=== PATIENT | male | born 1945 | race Caucasian/White ===

== ENCOUNTER 2021-01-31 14:00 | Inpatient (IN) ==
[2021-01-31] MEDS ORDERED: GLUCAGON 1 MG VIAL IM PRN (16:55)
[2021-01-31 16:56] LABS: Basophils # 0.1 10*3/uL (0.0-0.2); Basophils % 0.5 % (0.0-0.8); Eosinophils # 0.1 10*3/uL (0.0-0.87); Eosinophils % 0.7 % (0.00-10.9); Hematocrit 36.7 VOL% (42.0-52.0); Hemoglobin 12.8 GM/DL (14.0-18.0); Immature Granulocytes Absolute 0.14 #; Lymphocytes % 7.6 % (21.2-54.2); Mean Corpuscular HGB Conc 34.9 GM/DL (32-36); Mean Corpuscular Volume 93.1 FL (87-102); Monocytes % 10.6 % (1.7-12.7); Neutrophils % 79.6 % (38.7-73.9); Platelet Count 241 T/CUMM (130-400); Red Blood Count 3.94 MC/CUMM (3.8-5.5); Red Cell Distribution Width 20.5 % (9.3-17.3); White Blood Count 13.7 T/CUMM (4-12)
[2021-01-31 17:05] LABS: INR 1.6; PT Patient Result 16.7 SECS (9.8-11.9)
[2021-01-31 17:20] LABS: Albumin 2.2 G/DL (3.4-5.0); Bilirubin,Total 8.9 MG/DL (0.2-1.0); Calcium 8.5 MG/DL (8.5-10.1); Osmolality,Calculated 307.3 MOS/KG (273-304); Potassium 4.4 MMOL/L (3.5-5.1); Total Protein 6.3 G/DL (5.0-7.5)
[2021-01-31] MEDS: PIPERACILLIN/TAZOBACTAM 3,375 MG in SODIUM CHLORIDE 0.9% 100 ML IV SCH (18:37)
[2021-02-01 01:20] LABS: Basophils # 0.1 10*3/uL (0.0-0.2); Basophils % 0.5 % (0.0-0.8); Eosinophils # 0.2 10*3/uL (0.0-0.87); Eosinophils % 1.6 % (0.00-10.9); Hematocrit 37.9 VOL% (42.0-52.0); Hemoglobin 13.2 GM/DL (14.0-18.0); Immature Granulocytes % 0.7 %; Lymphocytes # 1.7 10*3/uL (1.4-4.0); Lymphocytes % 11.9 % (21.2-54.2); Mean Corpuscular HGB Conc 34.8 GM/DL (32-36); Mean Corpuscular Volume 93.1 FL (87-102); Mean Platelet Volume 10.9 FL (9.6-12.0); Monocytes % 11.4 % (1.7-12.7); Neutrophils % 73.9 % (38.7-73.9); Platelet Count 236 T/CUMM (130-400); Red Blood Count 4.07 MC/CUMM (3.8-5.5); Red Cell Distribution Width 21.2 % (9.3-17.3); White Blood Count 14.6 T/CUMM (4-12)
[2021-02-01 01:35] LABS: Alanine Aminotransferase 163 U/L (16-61); Albumin 2.2 G/DL (3.4-5.0); Alkaline Phosphatase 532 U/L (45-117); Aspartate Amino Transferase 373 U/L (0-37); Blood Urea Nitrogen 89 MG/DL (7-18); Calcium 8.7 MG/DL (8.5-10.1); Carbon Dioxide 12 MMOL/L (21-32); Estimated Glom Filtration Rate 14 ML/MIN; Glucose 98 MG/DL (74-106); HDL Cholesterol < 10 MG/DL (40-60); Osmolality,Calculated 309.1 MOS/KG (273-304); Potassium 4.8 MMOL/L (3.5-5.1); Sodium 142 MMOL/L (136-145); Thyroid Stimulating Hormone 0.908 uIU/ml (0.358-3.74); Total Protein 6.4 G/DL (5.0-7.5); Triglycerides 179 MG/DL (2-150); VLDL CHOLESTEROL 35.8 MG/DL
[2021-02-01 02:11] LABS: Hepatitis B Core IgM Quant < 0.05 Index; Hepatitis B Surface Ag Quant < 0.10 Index; Hepatitis B Surface Ag Result Non-Reactive (NonReactive); Hepatitis C Virus Ab Quant 0.07 Index; Hepatitis C Virus Ab Result Non-Reactive (NonReactive)
[2021-02-01] MEDS: PIPERACILLIN/TAZOBACTAM 3,375 MG in SODIUM CHLORIDE 0.9% 100 ML IV SCH ×2 (05:44→18:19)
[2021-02-01] MEDS: SODIUM CHLORIDE 0.9% 1,000 ML IV SCH (06:10)
[2021-02-01] MEDS: ONDANSETRON 4 MG/2 ML VIAL IV PRN (10:11)
[2021-02-01] MEDS ORDERED: HEPARIN 5,000 UNIT/1 ML VIAL SUBCUT SCH (10:30)
[2021-02-01] MEDS ORDERED: ALBUTEROL 2.5 MG/3 ML NEB RESP TX PRN (14:07)
[2021-02-01 22:30] LABS: Bilirubin,Urine Small mg/dL (Negative); Blood, Urine Negative (Negative); Glucose,Urine (UA) Negative (Negative); Hyaline Casts,Urine 29 /LPF (0-3); Ketones,Urine Negative (Negative); Mucus,Urine Occasional /LPF (Occasional); Nitrite,Urine Negative (Negative); Protein,Urine Negative; RBC,Urine 7 /HPF (0-4); Urine Appearance CLEAR (Clear); Urine Color Amber (Yellow); Urine Specific Gravity 1.019 (1.001-1.035); WBC,Urine 10 /HPF (0-6)
[2021-02-02] MEDS: SODIUM CHLORIDE 0.9% 1,000 ML IV SCH ×2 (02:18→13:00)
[2021-02-02 03:54] LABS: Basophils # 0.1 10*3/uL (0.0-0.2); Basophils % 0.4 % (0.0-0.8); Eosinophils # 0.1 10*3/uL (0.0-0.87); Eosinophils % 0.8 % (0.00-10.9); Hematocrit 39.1 VOL% (42.0-52.0); Hemoglobin 13.3 GM/DL (14.0-18.0); Immature Granulocytes % 0.6 %; Immature Granulocytes Absolute 0.09 #; Lymphocytes # 1.5 10*3/uL (1.4-4.0); Lymphocytes % 9.8 % (21.2-54.2); Mean Corpuscular Volume 92.9 FL (87-102); Mean Platelet Volume 10.6 FL (9.6-12.0); Monocytes % 8.2 % (1.7-12.7); NRBC # 0.02 10*3/uL; Neutrophils % 80.2 % (38.7-73.9); Platelet Count 246 T/CUMM (130-400); Red Blood Count 4.21 MC/CUMM (3.8-5.5); White Blood Count 15.7 T/CUMM (4-12)
[2021-02-02 04:26] LABS: Albumin 1.7 G/DL (3.4-5.0); Bilirubin,Total 9.2 MG/DL (0.2-1.0); Calcium 7.3 MG/DL (8.5-10.1); Osmolality,Calculated 316.6 MOS/KG (273-304); Potassium 4.9 MMOL/L (3.5-5.1); Total Protein 5.4 G/DL (6.4-8.2)
[2021-02-02 04:34] LABS: Total Protein 6.4 G/DL (6.4-8.2); Uric Acid 18.4 MG/DL (3.5-7.2)
[2021-02-02 05:55] LABS: Immunoglobulin G (Chem) 1390 MG/DL (700-1600); Total Protein (Chem) 6.4 G/DL (6.4-8.3)
[2021-02-02 05:56] LABS: Immunoglobulin A (Chem) 512 MG/DL (70-400); Immunoglobulin M (Chem) 31 MG/DL (40-230)
[2021-02-02] MEDS: PIPERACILLIN/TAZOBACTAM 3,375 MG in SODIUM CHLORIDE 0.9% 100 ML IV SCH (06:13)
[2021-02-02] MEDS: CHOLECALCIFEROL 1,000 UNIT TABLET PO SCH (08:10)
[2021-02-02] MEDS: ASCORBIC ACID 500 MG TABLET PO SCH (08:10)
[2021-02-02] MEDS: MULTIVITAMIN (CENTRUM) TABLET PO SCH (08:10)
[2021-02-02] MEDS: ASPIRIN CHEW 81 MG TABLET PO SCH (08:10)
[2021-02-02] MEDS: CETIRIZINE 10 MG TABLET PO SCH (08:10)
[2021-02-02] MEDS ORDERED: SODIUM BICARB INJ 50 MEQ in SODIUM CHLORIDE 0.45% 1,000 ML IV SCH (11:30)
[2021-02-02] MEDS ORDERED: SODIUM BICARB INJ 50 MEQ in IV BAG 1 EACH IV ONE (12:00)
[2021-02-02 12:08] LABS: Immuno Free Light Chain Kappa 12.06 MG/DL (0.33-1.94); Immuno Free Light Chain Lambda 10.52 MG/DL (0.57-2.63); Immuno Free Light Chain Ratio 1.15 MG/DL (0.26-1.65)
[2021-02-02] MEDS: SODIUM BICARB INJ 100 MEQ in DEXTROSE 5% 1,000 ML IV SCH (13:30)
[2021-02-03] MEDS: SODIUM BICARB INJ 100 MEQ in DEXTROSE 5% 1,000 ML IV SCH ×2 (00:06→11:05)
[2021-02-03 01:57] LABS: Basophils # 0.1 10*3/uL (0.0-0.2); Basophils % 0.5 % (0.0-0.8); Eosinophils # 0.2 10*3/uL (0.0-0.87); Eosinophils % 1.7 % (0.00-10.9); Hematocrit 34.5 VOL% (42.0-52.0); Hemoglobin 12.3 GM/DL (14.0-18.0); Immature Granulocytes % 0.7 %; Immature Granulocytes Absolute 0.09 #; Lymphocytes # 1.2 10*3/uL (1.4-4.0); Lymphocytes % 9.1 % (21.2-54.2); Mean Corpuscular HGB Conc 35.7 GM/DL (32-36); Mean Corpuscular Volume 91.8 FL (87-102); Mean Platelet Volume 10.2 FL (9.6-12.0); Monocytes % 10.5 % (1.7-12.7); NRBC # 0.04 10*3/uL; Neutrophils % 77.5 % (38.7-73.9); Platelet Count 198 T/CUMM (130-400); Red Blood Count 3.76 MC/CUMM (3.8-5.5); Red Cell Distribution Width 21.8 % (9.3-17.3); White Blood Count 13.4 T/CUMM (4-12)
[2021-02-03 02:17] LABS: Calcium 8.1 MG/DL (8.5-10.1); Potassium 5.6 MMOL/L (3.5-5.1)
[2021-02-03 02:20] LABS: Albumin 1.8 G/DL (3.4-5.0); Bilirubin,Total 9.1 MG/DL (0.2-1.0); Calcium 8.1 MG/DL (8.5-10.1); Osmolality,Calculated 321.1 MOS/KG (273-304); Potassium 5.5 MMOL/L (3.5-5.1); Total Protein 5.9 G/DL (6.4-8.2)
[2021-02-03 02:28] LABS: Uric Acid 20.4 MG/DL (3.5-7.2)
[2021-02-03 04:10] LABS: Allen Test Positive; Pt O2 Delivery Device Room Air
[2021-02-03 04:15] LABS: ABG HCO3 17.3 MMOL/L (20-26); ABG Oxygen Saturation 95.8 % (95-100); ABG PCO2 27.5 MM HG (35-48); ABG PH 7.354 (7.35-7.45); ABG TCO2 13.6 MMOL/L (23-27)
[2021-02-03 05:04] LABS: Albumin (SPE) 3.3 G/DL (3.2-5.3); Albumin (SPE) Rel % 51.7 %; Alpha 1 (SPE) 0.2 G/DL (0.1-0.4); Alpha 1 (SPE) Rel % 3.2 %; Alpha 2 (SPE) 0.7 G/DL (0.4-1.0); Beta (SPE) 0.7 G/DL (0.5-1.1); Beta (SPE) Rel % 10.8 %; Gamma (SPE) 1.5 G/DL (0.7-1.7); Gamma (SPE) Rel % 23.3 %
[2021-02-03] MEDS ORDERED: SODIUM POLYSTYRENE SULFATE 15 GM/60 ML BOTTLE PO STA (07:37)
[2021-02-03] MEDS: ASCORBIC ACID 500 MG TABLET PO SCH (08:42)
[2021-02-03] MEDS: CHOLECALCIFEROL 1,000 UNIT TABLET PO SCH (08:43)
[2021-02-03] MEDS: ASPIRIN CHEW 81 MG TABLET PO SCH (08:44)
[2021-02-03] MEDS: CETIRIZINE 10 MG TABLET PO SCH (08:44)
[2021-02-03] MEDS: MULTIVITAMIN (CENTRUM) TABLET PO SCH (08:44)
[2021-02-03] MEDS ORDERED: FUROSEMIDE 40 MG/4 ML VIAL IV ONE (09:30)
[2021-02-03] MEDS ORDERED: SODIUM BICARB INJ 50 MEQ in IV BAG 1 EACH IV ONE (09:30)
[2021-02-03 14:01] LABS: Calcium 8.1 MG/DL (8.5-10.1); Osmolality,Calculated 327.6 MOS/KG (273-304); Potassium 5.2 MMOL/L (3.5-5.1)
[2021-02-03] MEDS ORDERED: ceFAZolin 1,000 MG in SYRINGE 1 EACH IV ONE (14:50)
[2021-02-04 02:25] LABS: Basophils # 0.1 10*3/uL (0.0-0.2); Basophils % 0.4 % (0.0-0.8); Eosinophils # 0.3 10*3/uL (0.0-0.87); Eosinophils % 1.8 % (0.00-10.9); Hematocrit 34.2 VOL% (42.0-52.0); Hemoglobin 12.2 GM/DL (14.0-18.0); Immature Granulocytes % 0.8 %; Immature Granulocytes Absolute 0.11 #; Lymphocytes # 1.3 10*3/uL (1.4-4.0); Lymphocytes % 9.4 % (21.2-54.2); Mean Corpuscular HGB Conc 35.7 GM/DL (32-36); Mean Corpuscular Volume 91.2 FL (87-102); Mean Platelet Volume 10.3 FL (9.6-12.0); Monocytes % 11.9 % (1.7-12.7); Neutrophils % 75.7 % (38.7-73.9); Platelet Count 208 T/CUMM (130-400); Red Blood Count 3.75 MC/CUMM (3.8-5.5); Red Cell Distribution Width 22.1 % (9.3-17.3); White Blood Count 13.6 T/CUMM (4-12)
[2021-02-04 02:48] LABS: Albumin 1.8 G/DL (3.4-5.0); Bilirubin,Total 9.9 MG/DL (0.2-1.0); Calcium 7.8 MG/DL (8.5-10.1); Osmolality,Calculated 315.1 MOS/KG (273-304); Potassium 5.2 MMOL/L (3.5-5.1); Total Protein 5.8 G/DL (6.4-8.2)
[2021-02-04 02:53] LABS: Uric Acid 18.6 MG/DL (3.5-7.2)
[2021-02-04 03:07] LABS: Hypochromasia Slight; Platelet Estimate Normal; Target Cells 1+
[2021-02-04 03:08] LABS: Polychromasia Few
[2021-02-04] MEDS ORDERED: ceFAZolin 1,000 MG in SYRINGE 1 EACH IV ONE ×2 (06:00→12:58)
[2021-02-04] MEDS: ASPIRIN CHEW 81 MG TABLET PO SCH (07:59)
[2021-02-04] MEDS: CETIRIZINE 10 MG TABLET PO SCH (07:59)
[2021-02-04] MEDS: ASCORBIC ACID 500 MG TABLET PO SCH (07:59)
[2021-02-04] MEDS: FEBUXOSTAT 80 MG TABLET PO SCH (07:59)
[2021-02-04] MEDS: CHOLECALCIFEROL 1,000 UNIT TABLET PO SCH (07:59)
[2021-02-04] MEDS: MULTIVITAMIN (CENTRUM) TABLET PO SCH (07:59)
[2021-02-04] MEDS ORDERED: LACTATED RINGERS 1,000 ML IV SCH (08:00)
[2021-02-04] MEDS ORDERED: HEPARIN 10,000 UNIT/10 ML VIAL IV PRN (10:55)
[2021-02-04] MEDS: SODIUM CHLORIDE 0.9% 1,000 ML IV SCH (13:25)
[2021-02-04] MEDS ORDERED: propofoL 200 MG/20 ML VIAL IV ONE (13:48)
[2021-02-04] MEDS ORDERED: LIDOCAINE 2% 5 ML VIAL ONE (13:48)
[2021-02-04] MEDS: PANTOPRAZOLE 40 MG VIAL IV SCH ×2 (14:44→21:12)
[2021-02-04] MEDS: SODIUM BICARBONATE 650 MG TABLET PO SCH ×2 (14:44→21:10)
[2021-02-05 05:56] LABS: Random Urine Protein (Bench) 51 MG/DL (<11.9)
[2021-02-05 06:52] LABS: Basophils # 0.1 10*3/uL (0.0-0.2); Basophils % 0.4 % (0.0-0.8); Eosinophils # 0.1 10*3/uL (0.0-0.87); Hematocrit 34.4 VOL% (42.0-52.0); Hemoglobin 12.3 GM/DL (14.0-18.0); Immature Granulocytes Absolute 0.14 #; Lymphocytes # 1.1 10*3/uL (1.4-4.0); Lymphocytes % 8.1 % (21.2-54.2); Mean Corpuscular HGB Conc 35.8 GM/DL (32-36); Mean Platelet Volume 10.3 FL (9.6-12.0); NRBC # 0.19 10*3/uL; Neutrophils % 76.5 % (38.7-73.9); Platelet Count 196 T/CUMM (130-400); Red Blood Count 3.74 MC/CUMM (3.8-5.5); Red Cell Distribution Width 23.6 % (9.3-17.3); White Blood Count 13.7 T/CUMM (4-12)
[2021-02-05 07:05] LABS: Albumin 1.7 G/DL (3.4-5.0); Bilirubin,Total 11.1 MG/DL (0.2-1.0); Osmolality,Calculated 296.8 MOS/KG (273-304); Potassium 5.8 MMOL/L (3.5-5.1); Total Protein 5.6 G/DL (6.4-8.2)
[2021-02-05 07:06] LABS: Calcium 7.7 MG/DL (8.5-10.1); Osmolality,Calculated 301.5 MOS/KG (273-304); Potassium 5.6 MMOL/L (3.5-5.1)
[2021-02-05 07:12] LABS: Uric Acid 15.3 MG/DL (3.5-7.2)
[2021-02-05 07:17] LABS: Platelet Estimate Normal
[2021-02-05 07:18] LABS: Anisocytosis 2+; Burr Cells Few; Macrocytosis 2+; Target Cells Few
[2021-02-05] MEDS: DEXTROSE 50% 25 GM/50 ML VIAL IV PRN (07:45)
[2021-02-05] MEDS ORDERED: ceFAZolin 1,000 MG in SYRINGE 1 EACH IV ONE (08:20)
[2021-02-05] MEDS ORDERED: LIDOCAINE 1%/EPI INJ 20 ML VIAL ONE (09:02)
[2021-02-05] MEDS ORDERED: HEPARIN 5,000 UNIT/1 ML VIAL ONE (09:02)
[2021-02-05] MEDS ORDERED: BUPIVACAINE MPF 0.25% 30 ML VIAL ONE (09:02)
[2021-02-05] MEDS ORDERED: ALBUMIN 5% 12.5 GM/250 ML VIAL IV ONE (09:18)
[2021-02-05] MEDS ORDERED: ALBUMIN 5% 12.5 GM in PREMIX 1 EACH IV ONE (09:20)
[2021-02-05 09:25] LABS: INR 2.6; PT Patient Result 26.8 SECS (9.8-11.9)
[2021-02-05] MEDS ORDERED: SODIUM CHLORIDE 0.9% 250 ML IV SCH (09:30)
[2021-02-05] MEDS ORDERED: fentaNYL 100 MCG/2 ML VIAL ONE (09:32)
[2021-02-05] MEDS: MULTIVITAMIN (CENTRUM) TABLET PO SCH (09:40)
[2021-02-05] MEDS: PANTOPRAZOLE 40 MG VIAL IV SCH ×2 (09:40→21:48)
[2021-02-05] MEDS: ASPIRIN CHEW 81 MG TABLET PO SCH (09:40)
[2021-02-05] MEDS: SODIUM BICARBONATE 650 MG TABLET PO SCH ×3 (09:40→21:47)
[2021-02-05] MEDS: ASCORBIC ACID 500 MG TABLET PO SCH (09:41)
[2021-02-05] MEDS: CHOLECALCIFEROL 1,000 UNIT TABLET PO SCH (09:41)
[2021-02-05] MEDS: CETIRIZINE 10 MG TABLET PO SCH (09:41)
[2021-02-05] MEDS: FEBUXOSTAT 80 MG TABLET PO SCH (09:41)
[2021-02-05 10:11] LABS: ABG Base Excess -11.2 MMOL/L (-2.5-2.5); ABG HCO3 15.7 MMOL/L (20-26); ABG Oxygen Saturation 99.2 % (95-100); ABG PCO2 23.9 MM HG (35-48); ABG PH 7.344 (7.35-7.45); ABG TCO2 11.6 MMOL/L (23-27)
[2021-02-05] MEDS ORDERED: LIDOCAINE 2% 5 ML VIAL ONE (10:17)
[2021-02-05] MEDS ORDERED: SODIUM BICARBONATE 50 MEQ/50 ML VIAL IV ONE (10:17)
[2021-02-05] MEDS ORDERED: propofoL 200 MG/20 ML VIAL IV ONE (10:17)
[2021-02-05] MEDS ORDERED: PHENYLEPHRINE DRIP 20 MG/250 ML PREMIX IV ONE (10:45)
[2021-02-05] MEDS: SODIUM CHLORIDE 0.9% 1,000 ML IV SCH (13:21)
[2021-02-06 01:16] LABS: Basophils # 0.1 10*3/uL (0.0-0.2); Basophils % 0.3 % (0.0-0.8); Eosinophils # 0.3 10*3/uL (0.0-0.87); Eosinophils % 1.9 % (0.00-10.9); Hematocrit 30.6 VOL% (42.0-52.0); Hemoglobin 10.7 GM/DL (14.0-18.0); Immature Granulocytes % 0.7 %; Immature Granulocytes Absolute 0.11 #; Lymphocytes # 1.4 10*3/uL (1.4-4.0); Lymphocytes % 8.8 % (21.2-54.2); Mean Corpuscular Volume 92.7 FL (87-102); Mean Platelet Volume 10.1 FL (9.6-12.0); NRBC # 0.13 10*3/uL; Neutrophils % 76.3 % (38.7-73.9); Platelet Count 176 T/CUMM (130-400); Red Cell Distribution Width 23.1 % (9.3-17.3); White Blood Count 16.1 T/CUMM (4-12)
[2021-02-06 01:48] LABS: Albumin 2.3 G/DL (3.4-5.0); Bilirubin,Total 11.5 MG/DL (0.2-1.0); Calcium 7.3 MG/DL (8.5-10.1); Osmolality,Calculated 309.4 MOS/KG (273-304); Potassium 5.2 MMOL/L (3.5-5.1); Total Protein 5.9 G/DL (6.4-8.2)
[2021-02-06 03:06] LABS: Macrocytosis 1+
[2021-02-06 03:07] LABS: Atypical Lymphocytes Few; Ovalocytes Few; Platelet Estimate Decreased; Polychromasia Few; Spherocytes Few; Target Cells 1+
[2021-02-06] MEDS: PANTOPRAZOLE 40 MG VIAL IV SCH ×2 (08:52→20:31)
[2021-02-06] MEDS: FEBUXOSTAT 80 MG TABLET PO SCH (08:52)
[2021-02-06] MEDS: SODIUM BICARBONATE 650 MG TABLET PO SCH ×2 (08:53→15:10)
[2021-02-06] MEDS: CHOLECALCIFEROL 1,000 UNIT TABLET PO SCH (08:53)
[2021-02-06] MEDS: ASCORBIC ACID 500 MG TABLET PO SCH (08:53)
[2021-02-06] MEDS: ASPIRIN CHEW 81 MG TABLET PO SCH (08:54)
[2021-02-06] MEDS: MULTIVITAMIN (CENTRUM) TABLET PO SCH (08:54)
[2021-02-06] MEDS: CETIRIZINE 10 MG TABLET PO SCH (08:54)
[2021-02-06] MEDS ORDERED: PROMETHAZINE 25 MG/1 ML VIAL IM PRN (11:26)
[2021-02-06] MEDS ORDERED: LORazepam 2 MG/1 ML VIAL IV PRN (16:55)
[2021-02-07 01:11] LABS: Bilirubin,Total 11.7 MG/DL (0.2-1.0); Calcium 6.3 MG/DL (8.5-10.1); Osmolality,Calculated 316.4 MOS/KG (273-304); Total Protein 5.5 G/DL (6.4-8.2)
[2021-02-07 01:24] LABS: Potassium 6.2 MMOL/L (3.5-5.1)
[2021-02-07] MEDS: DEXTROSE 50% 25 GM/50 ML VIAL IV PRN (01:40)
[2021-02-07] MEDS: MORPHINE 4 MG/1 ML VIAL IV PRN ×2 (06:17→10:03)
[2021-02-07] MEDS: SODIUM CHLORIDE 0.9% 1,000 ML IV SCH (07:56)
[2021-02-07] MEDS: ASCORBIC ACID 500 MG TABLET PO SCH ×2 (09:06→10:08)
[2021-02-07] MEDS: CETIRIZINE 10 MG TABLET PO SCH ×2 (09:06→10:09)
[2021-02-07] MEDS: PANTOPRAZOLE 40 MG VIAL IV SCH (09:08)
[2021-02-07] MEDS: ONDANSETRON 4 MG/2 ML VIAL IV PRN (10:03)
[2021-02-07 11:49] VITALS: BP 77/32
== END 2021-02-07 15:45 | disposition expired | DRG 843 ==
LOC: SUATTDRO 16:03 → N.3E 16:03
PROVIDERS: ADMIT Internal Medicine; ATTEND Hospitalist